=== PATIENT | male | born 2000 | race Caucasian/White ===

== ENCOUNTER → 2022-01-22 12:38 | Outpatient (CLI) | payer BC, SELFPAY ==
[2022-01-22 15:12] LABS: COVID19 -Nasal RAPID POSITIVE (Negative)
== END ==
PROVIDERS: PCP Nurse Practitioner Family; Visit Provider Nurse Practitioner Family
DX: U07.1 COVID-19 (principal)
CPT/HCPCS: 87070; 87635

== ENCOUNTER → 2023-01-09 17:21 | Outpatient (CLI) | payer BC, SELFPAY | PROVIDERS: Visit Provider Physician Assistant | DX: J02.9 Acute pharyngitis, unspecified (principal) | CPT/HCPCS: 87070 ==